=== PATIENT | male | born 1950 | race Caucasian/White ===

== ENCOUNTER 2016-09-18 09:23 | Inpatient (IN) | payer BC, MEDICARE ==
--- NOTE | ~2016-09-18 | CN ---
Consultation Report [facility] [address] [place]. [address] NAME: CHASE PLAZA : 48 STATUS : ADM IN [facility]#: [id number] AGE: 65 ADM/REG DATE : 09/18/16 MR#: [id number] REPORT SERV DATE: 09/18/16 DICTATED BY: DATE: REPORT STATUS : Draft TRANSCRIBED BY: MODL DATE: 09/18/16 NEUROLOGY CONSULTATION DATE OF CONSULTATION: 09/18/2016 REASON FOR CONSULT: Aphasia, concern for acute stroke. HISTORY OF PRESENT ILLNESS: This is a 65-year-old male who presented to [facility] secondary to acute onset of aphasia with the patient last noted to be normal at 0400 hours. At roughly 0630 hours, the patient woke his up, was noted to have significant difficulty talking, possible right-sided weakness, the patient was not noted to have similar symptoms in the past and is not on any anticoagulation. No recent history of illness was otherwise noted. The patient's reports compliance with medications since the onset, the symptom has remained stable with the patient periodically noted to have significant right-sided weakness as well as right upper extremity mild contracture. PAST MEDICAL HISTORY: Otherwise, the patient's past medical history is significant for hypertension, gout, melanoma, history of cholecystitis, as well as choledocholithiasis and pancreatitis with the patient noted to have basal cell cancer as well and hypercholesterolemia. MEDICATIONS: The patient is currently taking cholesterol medication as well as hypertensive medication, no anticoagulation was noted. ALLERGIES: THE PATIENT REPORTS NO KNOWN DRUG ALLERGIES. FAMILY HISTORY: Significant for cervical cancer as well as colon cancer. SOCIAL HISTORY: Moderate alcohol usage per medical record in 2013, but otherwise no recent tobacco usage and no illicit drug usage. The patient is a previous smoker. REVIEW OF SYSTEMS: Negative except for those mentioned in the HPI. PHYSICAL EXAMINATION: VITAL SIGNS: At the time of evaluation, the patient was noted to have vital signs with T-max of 98.2, heart rate of 66, respirations of 16 to 18, and blood pressure of 167/82. GENERAL: The patient was well developed, well nourished, and in no acute distress. CARDIOVASCULAR: Regular rate and rhythm. No carotid bruits were otherwise auscultated. PULMONARY: Clear to auscultation bilaterally. NEUROLOGIC: Generally, the patient was alert, was noted to be aphasic with having difficulty answering orientation questions. He was able to provide fragmented words but was able to follow simple commands, had difficulties following complex commands. Cranial nerves 2 through 12, pupils were equal, round, and reactive to light. Horizontal eye movement was Consultation Report [facility] [id number] [place]. [address] NAME: CHASE PLAZA : 49 STATUS : ADM IN PAT#: [id number] AGE: 65 ADM/REG DATE : 09/18/16 MR#: [id number] REPORT SERV DATE: 09/18/16 DICTATED BY: DATE: REPORT STATUS : Draft TRANSCRIBED BY: MODL DATE: 09/18/16 noted with intact [id number] response. Right facial weakness was noted at the time of evaluation. Apparent symmetrical sensation with the patient noted to have possible mild decrease movement in the right upper extremity but no drift. Otherwise, normal finger-to- nose examination bilaterally. Symmetric strength in bilateral lower extremity. Was noted to have intact sensation. The patient was noted to have intact reflexes. Gait was not evaluated secondary to acute symptoms. LABORATORY STUDY: White blood cell count of 7.0, hemoglobin of 14.5, hematocrit of 41.1, and platelet count of 183. CT scan of the brain without contrast is otherwise negative. The CTA is pending. IMPRESSION: 1. Aphasia. The patient was last noted to be normal at 0400 hours with an NIH stroke scale of 8. The patient was noted to have mild right upper extremity weakness and right facial weakness. Unfortunately, tPA or alteplase was not offered secondary to the patient last noted to be normal greater than 4.5 hours. We will admit the patient for evaluation and workup. Radiologist has reviewed the CT angiogram of head and neck, and the patient was not noted to have any significant thrombus in the proximal vessels. RECOMMENDATIONS: 1. Admit to hospitalist. 2. PT, OT, and Speech Therapy to evaluate and treat. 3. Aspirin 325 mg p.o. daily. 4. Atorvastatin 80 mg p.o. at bedtime. 5. MRI of the brain without contrast. 6. Echocardiogram with bubble study. 7. Fasting lipid panel and hemoglobin A1c. [facility]/MODL Gilles Pichardo MD / [id number] CC: ANDREA GREY
--- NOTE | ~2016-09-18 | HP ---
History And Physical [address] [id number] [place]. [address] NAME: CHASE PLAZA : 48 STATUS : ADM IN [facility]#: [id number] AGE: 65 ADM/REG DATE : 09/18/16 MR#: [id number] REPORT SERV DATE: 09/18/16 DICTATED BY: MARCIAL WALKER DATE: 09/18/16 REPORT STATUS : Draft TRANSCRIBED BY: MODCamille DATE: 09/18/16 DATE OF ADMISSION: 09/18/2016 REASON FOR ADMISSION: Acute stroke. HISTORY OF PRESENT ILLNESS: This is a 65-year-old, white male, who awakened from sleep and found he could not speak. He had some right facial weakness and some right upper extremity weakness as well, just did not feel the same. He is brought to the emergency room. He is last known to be normal around 0400 this morning. He was seen earlier by Neurology with the [employer] [facility] [employer], stroke survey of 8. He was declared to be non tPA candidate; therefore, the hospitalists were asked to admit the patient to the hospital for further stroke evaluation. The patient has no history of atrial fibrillation formally, though he has had palpitations. He has had some atherosclerotic cardiovascular disease, but no interventions. He was seen by Dr. Alex Woodruff in the past. He is followed by Dr. Muriel Valladares in [place]. He actually lives in [place], [place]. PAST MEDICAL HISTORY: His gallbladder was removed in [facility] and eventually had to have a common duct stone removed by Dr. Elias ramey in 2013. He had a history of melanoma that was excised, basal cell cancer. He has a history of appendectomy and benign tumor removed from his leg in the past. He does have a history of hypertension, insomnia rosacea and hypercholesterolemia. SOCIAL HISTORY: He is . Attends the [employer] He uses alcohol moderately. Previously smoked, but quit about 12 years ago. FAMILY HISTORY: His father of a car accident. His mother had a history of cervical cancer. He has siblings with colon cancer. HOME MEDICATIONS: Include probenecid assumed for gout and valsartan HCT given by Dr. Valladares for hypertension. ALLERGIES: NONE KNOWN. REVIEW OF SYSTEMS: Difficult for the patient to say because of dysarthria. His right side is feeling different from his left side, though he has full range of motion. Sensory appears to be intact he says. He has had no chest pain or shortness of breath. No palpitations. No swelling in lower extremities. No fever, chills, or night sweats. The remainder of the review of systems is either unobtainable because of his dysarthria or negative. PHYSICAL EXAMINATION: VITAL SIGNS: His blood pressure has ran from 113-171/73 with a heart rate of 90-100, History And Physical [address] [place]. [address] NAME: CHASE PLAZA : 48 STATUS : ADM IN [facility]#: [id number] AGE: 65 ADM/REG DATE : 09/18/16 MR#: [id number] REPORT SERV DATE: 09/18/16 DICTATED BY: MARCIAL WALKER DATE: 09/18/16 REPORT STATUS : Draft TRANSCRIBED BY: DREA DATE: 09/18/16 respiratory rate 20, he is afebrile, oxygen saturation in the 94%-95% throughout the stay in the emergency room. The patient is examined in front of numerous family members with his permission. HEENT: EOMI. Sclerae clear. Conjunctivae pink. NECK: No bruit or thyroid. No JVD. CHEST: Clear to A and P. HEART: Regular S1, S2 without murmur, gallop, or click. PMI is not displaced. ABDOMEN: Soft and nontender. Bowel sounds positive. EXTREMITIES: He has had no edema. Distal pulses are intact in the dorsalis pedis and posterior tibial. NEUROLOGIC: He withdraws to plantar stimulation. The right arm is cooler than the left. Rapid alternating movements are intact. Motor appears to be intact in the right upper extremity. He does have dysarthria with difficulty finding words and some slurring of his speech with expression. He does understand. LYMPHATICS: There is no adenopathy. SKIN: Slightly brooks appearance to the face compatible with previous diagnosis of rosacea. LABORATORY: Monitor shows normal sinus rhythm with much muscle artifact. We will obtain EKG. His chest x-ray shows no acute abnormalities. The CTA of the neck shows no significant carotid or vertebral artery stenosis demonstrated. The right vertebral artery is nondominant. There is some minimal atherosclerotic plaquing in the intracranial portion of the right internal carotid artery without significant stenosis and mild cortical volume loss with compatible chronic deep white matter disease. Type and screen has been done. CT scan of the brain with stroke protocol shows no acute intracranial abnormalities appreciated, mild cortical volume loss. The CMP shows a creatinine of 0.94, BUN of 12, sodium 142, potassium 4.0. Glucose was 99. The liver tests were normal. Troponin less than 0.02. His hemoglobin was 14.5, hematocrit 41.1, white count 7.0, platelets were 183,000. The INR was 1.0. Glucose initially 97 on arrival. ASSESSMENT: 1. Aphasia. 2. Modest right hemiparesis. Appears to be improving. 3. Suspicion for acute stroke. 4. History of hypertension. 5. Possible hyperlipidemia. Lipitor started empirically as is aspirin. PLAN: The patient is admitted per Neurology consultation and recommendations for starting on atorvastatin 80 mg p.o. at bedtime. MRI of the brain with contrast is suggested. Echocardiogram with bubble study, a fasting lipid profile and hemoglobin A1c are planned. DB/DREA History And Physical [address] [address] NAME: CHASE PLAZA : 48 STATUS : ADM IN [facility]#: [id number] AGE: 65 ADM/REG DATE : 09/18/16 MR#: [id number] REPORT SERV DATE: 09/18/16 DICTATED BY: MARCIAL WALKER DATE: 09/18/16 REPORT STATUS : Draft TRANSCRIBED BY: DREA DATE: 09/18/16 Marcial Walker M.D. / [id number] CC: Vin Quintero Mukta Richard Scott Gusso, M.D. Steven Stubblefield, M.D., F.A.C.C.
--- NOTE | ~2016-09-18 | DS ---
Discharge Summary [facility] [address] [facility] [facility] [place]. [address] NAME: CHASE PLAZA : 48 STATUS : DIS IN PAT#: [id number] AGE: 65 ADM/REG DATE : 09/18/16 MR#: [id number] REPORT SERV DATE: 09/20/16 DICTATED BY: CHET CHINO DATE: 09/20/16 REPORT STATUS : Draft TRANSCRIBED BY: MODL DATE: 09/20/16 ADMISSION DATE: 09/18/2016 DISCHARGE DATE: 09/20/2016 CONSULTANTS: Dr. Gilles Pichardo, Neurology. DISCHARGE DIAGNOSES: 1. Acute left middle cerebral artery stroke. 2. Hypertension. 3. Possible patent foramen ovale. 4. Recent upper respiratory tract infection. 5. Previous common bile duct stones. HISTORY: This gentleman awoke about 6:30 in the morning on the day of admission noticing he was having difficulty talking, weakness in his right face and his right arm, and a little bit of numbness in his right leg. By the time he got to the emergency room, it had been more than 4-1/2 hours and with his NIH stroke score of 8, he was not felt to be a candidate for tPA. He was seen in the ER by the neurologist. He had a CT scan of the brain which revealed mild cortical volume loss and mild chronic deep white matter changes. He had a CTA of the neck and brain, which revealed no significant carotid or vertebral stenosis. The right vertebra was nondominant. There was possibly some minimal atherosclerotic plaque involving the intracranial portion of the right internal carotid artery without significant stenosis. No high-grade stenosis or large vessel occlusion was noted. MRI of the brain revealed acute left middle cerebral artery infarction in the frontal and parietal regions and a portion of the left insula. It was non-hemorrhagic. The dimensions were described as 2.4 x 2.2. Echocardiogram 09/18/2016 showed left atrium 3.6 cm, left ventricular ejection fraction 60%, mild mitral regurgitation. Questionable [id number] shunt on a bubble study. EKG here revealed sinus rhythm. He had no evidence of atrial fibrillation during his time here. The patient was given aspirin, high-dose statin, and Plavix. His total cholesterol 154, HDL 40, LDL 86, triglycerides 144, TSH normal at 0.941. A1c normal at 5.4%. Troponins normal. The patient's speech has slight slurring, has a slight droop at the right side of his mouth, has no coughing or choking during meals. The patient's right hand weakness has dramatically improved. He is left handed. His right hand strength that he feels is back close to his normal. His ambulation is independent. We are recommending outpatient PT and OT. Neurology recommends that he see [facility], Cardiology, for a loop recorder to monitor for atrial fibrillation. We have not seen atrial fibrillation, but the patient states his office based physician has told him that occasionally they have noticed a little bit of skipping of his heart rhythm. The patient had a recent upper respiratory tract infection for which he took a Z-Ruy, but those symptoms have resolved. DISCHARGE MEDICATIONS: Aspirin 325 mg daily, Lipitor 80 mg at bedtime, Zetia 10 mg at bedtime, Plavix 75 mg daily, Benemid 500 mg at bedtime, and Diovan HCT 160/12.5 half a Discharge Summary [address] [address] NAME: CHASE PLAZA : 48 STATUS : DIS IN PAT#: [id number] AGE: 65 ADM/REG DATE : 09/18/16 MR#: [id number] REPORT SERV DATE: 09/20/16 DICTATED BY: CHET CHINO DATE: 09/20/16 REPORT STATUS : Draft TRANSCRIBED BY: DREA DATE: 09/20/16 tablet at bedtime. I spent 32 minutes today with the patient and with his and with discharge planning. JEANA/DREA Chet Chino M.D. / [id number] CC: Vin Quintero MUKTA Vijaykurmar Patel, M.D. [facility] Alex Woodruff M.D., F.A.C.C.
[2016-09-18 09:09] LABS: BASOPHILS 0.3 %; BASOPHILS ABSOLUTE 0.02 10/3/uL (0.0-0.16); EOSINOPHILS 1.3 %; EOSINOPHILS ABSOLUTE 0.09 10/3/uL (0.0-0.53); ER CBC TAT 0 Hrs 08 Mins; HEMATOCRIT 41.1 % (40.0-51.0); HEMOGLOBIN 14.5 g/dL (13.6-17.8); IMMATURE GRANULOCYTES 0.6 %; IMMATURE GRANULOCYTES ABSOLUTE 0.04 10/3/uL (0.0-0.11); LYMPHOCYTES 20.8 %; LYMPHOCYTES ABSOLUTE 1.46 10/3/uL (0.67-4.30); MANUAL DIFF NO %; MEAN CORPUS HGB CONC 35.3 g/dL (32.0-36.0); MEAN CORPUSCULAR HEMOGLOB 31.6 pg (26.0-34.0); MEAN CORPUSCULAR VOLUME 89.5 fL (80-100); MEAN PLATELET VOLUME 9.8 fL (9.2-13.0); MONOCYTES 8.4 %; MONOCYTES ABSOLUTE 0.59 10/3/uL (0.21-1.20); NEUTROPHILS 68.6 %; NEUTROPHILS ABSOLUTE 4.81 10/3/uL (2.02-8.40); PLATELET COUNT 183 10/3/uL (150-400); RBC DISTRIBUTION WIDTH 12.4 % (12.0-16.0); RED CELL COUNT 4.59 10/6/uL (4.7-6.1)
[2016-09-18 09:17] LABS: INTERNATIONAL NORMAL RATI 1.1 UNITS (-); PARTIAL THROMBO TIME 28.8 SEC (22.5-37.2); PROTIME (NOT ORD) 13.6 SEC (12.0-14.5)
[~2016-09-18 09:23] MED LIST: AMB10 PO; BENEMID500 PO; DIOVAN HC1 PO; MINOCIN100 PO; PCET PO; ZETIA PO
[2016-09-18 09:26] LABS: ALBUMIN 3.6 G/DL (3.5-5.0); ALKALINE PHOSPHATASE 84 U/L (45-117); BUN (BLOOD UREA NITROGEN) 12 MG/DL (6-23); CALCIUM, SERUM 8.8 MG/DL (8.5-10.4); CHLORIDE, SERUM 105 MMOL/L (96-112); CO2 (CARBON DIOXIDE) 28 MMOL/L (24-34); CREATININE 0.94 MG/DL (0.70-1.30); GFR AFRICAN AMERICAN 98 ML/MIN (>=60); GFR NON AFRICAN AMERICAN 84 ML/MIN (>=60); GLUCOSE, SERUM 99 MG/DL (60-99); SGOT(AST) 14 U/L (5-40); SGPT(ALT) 13 U/L (5-65); SODIUM, SERUM 142 MMOL/L (135-148); TOTAL BILIRUBIN 0.8 MG/DL (0-1.2); TOTAL PROTEIN 7.2 G/DL (6.0-8.5); TROPONIN I <0.02 NG/ML (<0.05)
[2016-09-18 09:27] LABS: GLOBULIN 3.6 G/DL (2.5-4.1)
[2016-09-18] MEDS ORDERED: Z-PAK PO (09:36)
[2016-09-18] MEDS ORDERED: ZETIA PO (09:36)
[2016-09-18] MEDS ORDERED: BENEMID500 PO (09:36)
[2016-09-18] MEDS ORDERED: DIOVAN HC1 PO (09:37)
[2016-09-18 18:02] LABS: BASOPHILS 0.3 %; BASOPHILS ABSOLUTE 0.02 10/3/uL (0.0-0.16); EOSINOPHILS 1.1 %; EOSINOPHILS ABSOLUTE 0.07 10/3/uL (0.0-0.53); HEMATOCRIT 41.4 % (40.0-51.0); HEMOGLOBIN 14.2 g/dL (13.6-17.8); IMMATURE GRANULOCYTES 0.5 %; IMMATURE GRANULOCYTES ABSOLUTE 0.03 10/3/uL (0.0-0.11); LYMPHOCYTES 22.6 %; LYMPHOCYTES ABSOLUTE 1.44 10/3/uL (0.67-4.30); MANUAL DIFF NO %; MEAN CORPUS HGB CONC 34.3 g/dL (32.0-36.0); MEAN CORPUSCULAR HEMOGLOB 31.3 pg (26.0-34.0); MEAN CORPUSCULAR VOLUME 91.2 fL (80-100); MEAN PLATELET VOLUME 10.7 fL (9.2-13.0); MONOCYTES ABSOLUTE 0.51 10/3/uL (0.21-1.20); NEUTROPHILS 67.5 %; NEUTROPHILS ABSOLUTE 4.31 10/3/uL (2.02-8.40); PLATELET COUNT 193 10/3/uL (150-400); RBC DISTRIBUTION WIDTH 12.3 % (12.0-16.0); RED CELL COUNT 4.54 10/6/uL (4.7-6.1); WHITE BLOOD CELLS 6.4 10/3/uL (4.5-10.5)
[2016-09-18 18:23] LABS: CHOL/HDL RATIO(NOT ORDER) 3.9 (0-5); CHOLESTEROL 154 MG/DL (< 200); CPK 52 U/L (0-200); HDL CHOLESTEROL 40 MG/DL (> 39); LDL CHOLESTEROL 86 MG/DL (< 130); NON-HDL CHOLESTEROL 114 MG/DL (< 160); TRIGLYCERIDE 144 MG/DL (< 150); TROPONIN I <0.02 NG/ML (<0.05)
[2016-09-18 18:24] LABS: CK-MB < 0.5 NG/ML
[2016-09-19 01:28] LABS: CPK 46 U/L (0-200); TROPONIN I <0.02 NG/ML (<0.05)
[2016-09-19 01:33] LABS: CK-MB < 0.5 NG/ML
[2016-09-19 11:44] LABS: CK-MB < 0.5 NG/ML; CPK 50 U/L (0-200); TROPONIN I <0.02 NG/ML (<0.05)
[2016-09-19 16:59] LABS: ULTRASENSITIVE TSH 0.941 MCIU/ML (0.358-3.740)
[2016-10-02] MEDS ORDERED: LIPITOR80 MG PO (11:48)
[2016-10-02] MEDS ORDERED: ASAB PO (11:48)
[2016-10-02] MEDS ORDERED: PLAVIX PO (11:49)
[2016-10-02] MEDS ORDERED: C1 PO (11:50)
== END 2016-09-20 13:31 | disposition home or self-care (01) | DRG 65 ==
LOC: ER 09:23 → 1SO 10:18
PROVIDERS: Hospitalist; Nurse Practitioner Family
DX: I63.9 Cerebral infarction, unspecified (principal); G81.91 Hemiplegia, unspecified affecting right dominant side; Q21.1 Atrial septal defect; I10 Essential (primary) hypertension; E78.5 Hyperlipidemia, unspecified; I34.0 Nonrheumatic mitral (valve) insufficiency; Z68.31 Body mass index [BMI] 31.0-31.9, adult; E66.9 Obesity, unspecified; R29.708 NIHSS score 8; R29.810 Facial weakness; R13.0 Aphagia; Z87.891 Personal history of nicotine dependence; Z85.820 Personal history of malignant melanoma of skin; Z79.899 Other long term (current) drug therapy
CPT/HCPCS: 36415; 70450; 70496; 70498; 70551-52; 71010; 80053; 80061; 82550; 82553; 82962; 83036; 84443; 84484; 85025; 85610; 85730; 86850; 86900; 86901; 92522-GN; 92610-GN; 93005; 93306; 97165-GO; 99285; A9270-GY; G8996-CI-GN; G8997-CI-GN; G8998-CI-GN; G8999-CJ-GN; G9158-CJ-GN; G9186-CJ-GN; Q9967